=== PATIENT | male | born 1990 | race Caucasian/White ===

== ENCOUNTER 2020-05-20 10:38 | Emergency (ER) | payer OTHER, SELFPAY ==
[2020-05-20 10:49] VITALS: BP 146/80; PULSE 53; RESP 18; TEMP 36.7; O2SAT 100
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
[2020-05-20] MEDS: KETOROLAC (*BKC) 60 MG/2 ML VIAL IM (11:12)
[2020-05-20 12:16] VITALS: BP 134/76; PULSE 58; RESP 17; O2SAT 100
== END 2020-05-20 12:19 | disposition home or self-care (01) ==
PROVIDERS: Emergency Provider Emergency Medicine
DX: S61.214A Laceration without foreign body of right ring finger without damage to nail, initial encounter (principal); W37.8XXA Explosion and rupture of other pressurized tire, pipe or hose, initial encounter
CPT/HCPCS: 12001; 96372; 99283; J1885

== ENCOUNTER 2024-01-18 11:53 | Emergency (ER) | payer OTHER, SELFPAY ==
[2024-01-18 11:55] VITALS: BP 140/85; PULSE 74; RESP 18; TEMP 36.7; O2SAT 100
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
[2024-01-18 12:30] LABS: Appearance Urine Clear (Clear); Bilirubin Urine Negative (Negative); Blood Urine Negative (Negative); Color Urine Yellow (Yellow); Glucose Urine UA Negative (Negative); Ketones Urine Negative (Negative); Leukocyte Esterase Ur Negative LEU/UL (Negative); Nitrate Urine Negative (Negative); Protein Urine Negative (Negative); Specific Grav Ur 1.015 (1.010-1.020); Urobilinogen Urine 0.2 mg/dL (0.2-1.0)
[2024-01-18 12:32] LABS: Add Urine Microscopic? NO
== END 2024-01-18 12:50 | disposition home or self-care (01) ==
PROVIDERS: Emergency Provider Internal Medicine Critical Care Medicine; PCP Internal Medicine
DX: S30.811A Abrasion of abdominal wall, initial encounter (principal); S30.22XA Contusion of scrotum and testes, initial encounter; V23.49XA Other motorcycle driver injured in collision with car, pick-up truck or van in traffic accident, initial encounter
CPT/HCPCS: 81003; 99283